=== PATIENT | male | born 1945 | race Caucasian/White ===

== ENCOUNTER 2021-03-10 07:14 | Inpatient (IN) | payer MEDICARE, OTHER ==
[~2021-03-10] VITALS: Ht 175.3 cm; Wt 79.7 kg
[2021-03-10] MEDS ORDERED: FENTANYL PF 250 MCG/5ML ONE (07:29)
[2021-03-10] MEDS ORDERED: MIDAZOLAM 1 MG/ML, 5ML ONE (07:30)
[2021-03-10] MEDS ORDERED: BIVALIRUDIN 250 MG ONE (07:30)
[2021-03-10] MEDS ORDERED: LIDOCAINE 1%, 20ML ONE (07:30)
[2021-03-10] MEDS ORDERED: DIPHENHYDRAMINE 50 MG/ML, 1ML ONE (07:36)
--- NOTE | 2021-03-10 07:45 | NUR ---
PT PRESENTS TO ED FROM [facility] WITH STEMI. PT AO UPON ARRIVAL, DENIES PAIN OF ANY KIND. ONLY HX HYPERLIPIDEMIA WITH SIMVASTATIN. PT GIVEN 324 ASPIRIN, 1 MG ATIVAN, 25 MCG FENTANYL, 0.4 NITRO X2. IV'S IN BILATERAL AC'S. PT TAKEN TO STREETCAR CONDUCTOR.
[2021-03-10 08:10] LABS: BASOPHILS % (AUTO) 0 % (0-1); EOSINOPHILS % (AUTO) 1 % (1-7); LYMPHOCYTES % (AUTO) 12 % (22-44); MEAN CORPUSCULAR HEMOGLOBIN 31.6 pg (27.5-34.5); MEAN CORPUSCULAR HGB CONC 34.2 g/dL (33.2-36.2); MEAN PLATELET VOLUME 9.6 fL (7.4-10.4); MONOCYTES % (AUTO) 6 % (2-9); NEUTROPHILS % (AUTO) 82 % (42-75); PLATELET COUNT 150 x10^3/uL (130-400); RED BLOOD COUNT 4.36 x10^6/uL (4.38-5.82); RED CELL DISTRIBUTION WIDTH 13.4 % (9.4-14.8)
[2021-03-10 08:19] LABS: ANION GAP 7 mmol/L (5-15); CALCIUM 8.4 mg/dL (8.5-10.1); CHLORIDE 112 mmol/L (98-107)
[2021-03-10] MEDS ORDERED: BIVALIRUDIN 250 MG in SODIUM CHLORIDE 0.9% 50 ML IV SCH (08:30)
[2021-03-10] MEDS ORDERED: TICAGRELOR 90 MG TABLET ONE (08:34)
[2021-03-10] MEDS: TICAGRELOR 90 MG TABLET PO SCH ×2 (08:59→21:49)
[2021-03-10] MEDS ORDERED: SIMV20TA19 PO (10:44)
[2021-03-10] MEDS: SODIUM CHLORIDE 0.9% 1,000 ML IV SCH ×2 (12:04→20:00)
[2021-03-10] MEDS: ASPIRIN 81 MG TABLET EC PO SCH (12:04)
[2021-03-11] MEDS: SODIUM CHLORIDE 0.9% 1,000 ML IV SCH ×3 (04:00→20:00)
[2021-03-11 04:37] LABS: ANION GAP 4 mmol/L (5-15); CALCIUM 7.9 mg/dL (8.5-10.1); CHLORIDE 111 mmol/L (98-107); CREATININE 1.19 mg/dL (0.7-1.3)
[2021-03-11] MEDS: TICAGRELOR 90 MG TABLET PO SCH ×2 (09:54→21:10)
[2021-03-11] MEDS: ASPIRIN 81 MG TABLET EC PO SCH (09:54)
[2021-03-11 12:52] VITALS: BP 127/71
[2021-03-11 20:20] VITALS: BP 120/70
[2021-03-11 20:27] VITALS: BP 114/70
[2021-03-11] MEDS ORDERED: ATORVASTATIN 80 MG TABLET PO SCH (21:00)
[2021-03-12 02:24] VITALS: BP 125/74
[2021-03-12] MEDS: SODIUM CHLORIDE 0.9% 1,000 ML IV SCH ×2 (04:00→09:09)
[2021-03-12 07:06] VITALS: BP 129/71
[2021-03-12] MEDS ORDERED: METOPROLOL SUCCINATE 25 MG TAB.ER.24H PO SCH (08:30)
[2021-03-12] MEDS ORDERED: TICA90TA PO (08:36)
[2021-03-12] MEDS ORDERED: ASPI81TA45 PO (08:36)
[2021-03-12] MEDS ORDERED: ATOR-2 PO (08:36)
[2021-03-12] MEDS ORDERED: METO25TA91 PO (08:36)
[2021-03-12] MEDS: TICAGRELOR 90 MG TABLET PO SCH (09:08)
[2021-03-12] MEDS: ASPIRIN 81 MG TABLET EC PO SCH (09:08)
== END 2021-03-12 14:05 | disposition home or self-care (01) | DRG 247 ==
LOC: ED 07:38 → EDBD 08:39 → CCU 08:39 → 5SO 03-11 11:47
PROVIDERS: ADMIT Internal Medicine Cardiovascular Disease; ATTEND Internal Medicine Cardiovascular Disease
PROC: 027034Z Dilation of Coronary Artery, One Artery with Drug-eluting Intraluminal Device, Percutaneous Approach (ICD-10-PCS; principal; 2021-03-10)
PROC: 4A023N7 Measurement of Cardiac Sampling and Pressure, Left Heart, Percutaneous Approach (ICD-10-PCS; 2021-03-10)
PROC: B2111ZZ Fluoroscopy of Multiple Coronary Arteries using Low Osmolar Contrast (ICD-10-PCS; 2021-03-10)
PROC: B2151ZZ Fluoroscopy of Left Heart using Low Osmolar Contrast (ICD-10-PCS; 2021-03-10)
DX: I21.09 ST elevation (STEMI) myocardial infarction involving other coronary artery of anterior wall (principal); E78.5 Hyperlipidemia, unspecified; F80.81 Childhood onset fluency disorder; I25.2 Old myocardial infarction; Z79.82 Long term (current) use of aspirin; Z87.891 Personal history of nicotine dependence; Z91.013 Allergy to seafood
CPT/HCPCS: 36415; 93458; 99291; J3490; 80048; 83735; 84132; 84484; 85025; 87081; 93005; 93306; 99156; 99157; C1760; C1769; C1894; G0378; J0583; J2250; J3010; C1725; C1874; C1887; J1200; J7030; Q9967